=== PATIENT | female | born 1965 | race Caucasian/White ===

== ENCOUNTER 2017-01-17 09:40 | Day surgery (SDC) | payer OTHER ==
[2017-01-17] VITALS (9 sets, daily range): BP systolic 117–133; BP diastolic 59–68; PULSE 63–84; RESP 11–18; O2SAT 97–100
[~2017-01-17] VITALS: Ht 172.7 cm; Wt 91.8 kg
[~2017-01-17 09:40] MED LIST: RALO60TA PO
[2017-01-17] MEDS ORDERED: fentaNYL-PF 50 mCg/mL 2 mL Inj ONE (09:41)
[2017-01-17] MEDS: Lactated Ringer's 1,000 ML IV SCH ×2 (09:44→12:27)
--- NOTE | 2017-01-17 12:03 | DRSVH ---
PROCEDURE: NM SENTINEL NODE INJECTION ONLY, RIGHT BREAST RADIOPHARMACEUTICAL: 0.5 mCi Millipore filtered Tc-99m sulfur colloid. INDICATIONS: RIGHT BREAST CANCER PROCEDURE: The indications, alternatives, benefits, risks, and complications of the procedure were explained to the patient. Written informed consent was obtained and placed in the chart. The area around the nip ple was prepped and draped in a sterile fashion. Tc-99m sulfur colloid was injected in the outer edg e of the areola in the right breast. No image was obtained. IMPRESSION: Administration of radiotracer into the right breast periareolar region for intra-operati ve sentinel lymph node localization. Dictated by: Virgil Sawant M.D. on 01/17/2017 at 12:01 Approved by: Virgil Sawant M.D. on 01/17/2017 at 12:01
--- NOTE | 2017-01-17 12:23 | PCM.HPANE ---
Patient Data Surgeon Admitting Provider: Attending Provider:Yosvany Garsia MD Primary Care Physician:Santiago Walls MD Other Provider:[facility] Reason for Visit Right Breast Cancer Ht/WT & BMI Height (Feet): 5 Height (Inches): 8.00 Weight (Kilograms): 91.8 Body Mass Index 30.00 Allergies Coded Allergies: Tetracyclines (Verified Allergy, Severe, itching, 12/13/16) Past Anesthesia History Anesthesia History: Denies:: Anesthesia Reactions Diabetes History Hx Diabetes?: No Current Bedside Blood Glucose: 79 Medications Home Meds Incl Beta Francisco: No Reported Medications Raloxifene (Evista)60 Mg [id number] Mg PO DAILY 12/13/16 History History of ENT Problems?: No Hx of Heart Problems?: No Hx of Respiratory Problem?: No Respiratory History: Denies:: Oxygen Administration Use of C-PAP Machine Hx Neurologic Problems?: No Hx of GI Problems?: No Hx of Problems?: No Female Hx: Positive for:: Problems with Breasts? (right breast ca current admission/ hx of left segmental mast.) Denies:: Currently Hx Musculoskeletal Problems?: No Hx of Psycho/Social Problems?: No Hx Surgeries?: Yes (left segmental mastectomy) Hx Any Other Health Problems?: Yes Other History: Positive for:: Cancer (left breast hx, right breast current) Denies:: Thyroid Disease Hx Diabetes: NoBedside Blood Glucose: 79 Hx Alcohol Use: NoHx Substance Use: NoHave You Smoked inLast 12 mo: No Stop/Bang Treated for Sleep Apnea?: No Do You Have a CPAP Machine?: No P-Blood Pressure: treated: No B- Body Mass Index > 35 kg/m2: No A- Age over 50: Yes N- Neck Large Circumference: No G- Gender Male: No CLAU Risk Assessment: Low Risk, <3 Yes Risk Assessment Category Category 1A: Patient has history of documented sleep apnea, and HAS NOT received any narcotic, sedative or anesthesia administration during this stay. Category 1B: Patient has history of documented sleep apnea, and HAS received any narcotic , sedative or anesthesia administration during this stay Category 2: Patient has SUSPECTED Obstructive Sleep Apnea, and HAS received any narcotic , sedative or anesthesia administration during this stay. Category 3: Patient has SUSPECTED Obstructive Sleep Apnea and HAS NOT received narcotic, sedative or anesthesia administration during this stay. Category 4: Outpatient in Procedural Areas with known sleep apnea or who screen positive for High Risk via the STOP/BANG questionnaire. Exam Exam Vital Signs Vital Signs Date Time Temp Pulse Resp B/P Pulse Ox O2 Delivery O2 Flow Rate FiO2 01/17/17 10:09 36.5 63 18 126/59 97 Room Air General Appearance: Oriented X3 HEENT/AIRWAY: MP 2 Lungs: Normal Air Movement Heart: Regular Rate/Rhythm Meds/Labs/Diagnostics Admission Meds Current Medications Lactated Ringer's (Lr) 1,000 ml @ 120 mls/hr Q8H20M IV Last administered on t 09:44; Start 01/17/17 at 05:00; Stop 01/17/17 at 13:19 Bedside Blood Glucose: 79 Plan Impression Patient chart reviewed, patient interviewed and anesthestic plan with risks, benefits, and alternatives discussed, and informed consent obtained. NPO Status: 7PM ASA Physical Status: ASA2 Mod Systemic Disease Anesthetic Plan: GA Bene/Risks/Altern/Consents: Yes HP Complete Prior to Induction: Yes Shaka Echevarria MD Jan 17, 2017 12:22
[2017-01-17] MEDS ORDERED: Lactated Ringer's 500 ML IV PRN (14:34)
[2017-01-17] MEDS ORDERED: Lactated Ringer's 1,000 ML IV SCH (14:34)
[2017-01-17] MEDS ORDERED: Ondansetron 2 mg/mL 2 mL Inj IVPUSH PRN (14:35)
[2017-01-17] MEDS ORDERED: fentaNYL-PF 50 mCg/mL 2 mL Inj IVPUSH PRN (14:35)
[2017-01-17] MEDS ORDERED: EPHEDrine Sulfate 50 mg/mL Inj IVPUSH PRN (14:35)
[2017-01-17] MEDS ORDERED: Dexamethasone 4 mg/mL Inj IVPUSH PRN (14:35)
[2017-01-17] MEDS ORDERED: HYDROmorphone 1 mg/mL Inj IVPUSH PRN (14:35)
[2017-01-17] MEDS ORDERED: MetoCLOpramide 5 mg/mL 2 mL Inj IVPUSH PRN (14:35)
[2017-01-17] MEDS ORDERED: Phenylephrine 10,000 mCg/mL Inj IVPUSH PRN (14:35)
--- NOTE | 2017-01-17 14:36 | PCM.ANEP1 ---
Post Anesthesia Phase 1 PACU Phase 1 Assessment Vital Signs Vital Signs Date Time Temp Pulse Resp B/P Pulse Ox O2 Delivery O2 Flow Rate FiO2 01/17/17 14:30 83 14 128/60 100 Room Air 01/17/17 14:25 84 14 117/63 100 Simple Mask 8 01/17/17 14:20 65 11 119/59 100 Simple Mask 8 01/17/17 14:17 36.2 75 12 122/60 100 Simple Mask 8 01/17/17 10:09 36.5 63 18 126/59 97 Room Air Anesthetic Administered: GA Level of Alertness: Awake, talking Pain: No Nausea or Vomiting: No Oxygen Delivery: Room Air Lungs: Normal Air Movement Shaka Echevarria MD Jan 17, 2017 14:36
--- NOTE | 2017-01-17 14:36 | PCM.ANEP2 ---
Post Anesthesia Evaluation ASA/CMS Post Anesthesia VS in Patient's Normal Range?: Yes Resp Stable; Airway Patent?: Yes CV Function & Hydration Stable: Yes Mental Status Recovered?: Yes Pain control Satisfactory?: Yes N/V Control Satisfactory?: Yes Shaka Echevarria MD Jan 17, 2017 14:36
[2017-01-17] MEDS ORDERED: HYDROcodone-APAP 5-325 mg Tablet PO PRN (15:10)
--- NOTE | 2017-01-18 00:58 | OP ---
[address] [address] OPERATIVE REPORT PATIENT: BLANCA SERRANO : 1965 MR#: [id number] ADMIT: 01/17/2017 JOB ID: [id number] DATE OF SURGERY: 01/17/2017 PREOPERATIVE DIAGNOSIS(ES): Multifocal infiltrating ductal carcinoma, right breast. POSTOPERATIVE DIAGNOSIS(ES): Multifocal infiltrating ductal carcinoma, right breast. PROCEDURE: 1. Right axillary sentinel lymph node biopsy. 2. Right wire localized segmental mastectomy. Modifier-22 (two separate wires). 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 She had a breast MR scan which showed another area of her right breast and she underwent a biopsy on January 11 that also showed infiltrating ductal carcinoma. After discussing options with the patient, then at her request she wanted to proceed still with an attempt at breast conservation. She was discussed at the Tumor Conference, and with the agreement to proceed. To localize both areas, she required two separate wires. DESCRIPTION OF PROCEDURE: At the beginning and end of the operation, the SCOAP checklist was completed. Earlier today, she underwent a wire localization technique by Dr. Paz, and she also was injected for the sentinel lymph node biopsy. Using ChloraPrep, she was prepped and draped in the usual fashion. The sentinel lymph node was done first. The region of the node was localized in the axilla with the gamma scanner. An incision was designed and infiltrated with 0.5% bupivacaine. The axillary incision was made and dissection through the subcutaneous tissue to the clavipectoral fascia was done with cautery. After incising the clavipectoral fascia, the gamma scanner directed the dissection again using cautery. When I identified the node which had counts greater than 300, I removed the sentinel node and an adjacent node with the LigaSure. The background was essentially 0. This wound was then closed with layers of running 3-0 Vicryl subcutaneous sutures and then running subcuticular 4-0 Vicryl. Attention was then turned to the breast. There were two wires coming out of the medial breast. I made an incision between the two and then created skin flaps leading, and then was able to bring both wires into the wound. Using cautery, and also the LigaSure, the ample segmental mastectomy was performed, but when I came across the posterior lateral margin, I did come across one of the wires. I then backed up and redirected the direction of dissection. After taking out that specimen, I placed sutures for margin orientation. In examining that, I felt that there was possibly a positive margin involving the posterolateral portion of the specimen, and so I removed additional tissue and again placed sutures for margin orientation. Even with this, I elected to take even more breast tissue that abutted the 2nd breast specimen. I then asked Ed Garay, from Pathology, to come into the operating room, and then, both in the operating room and then back in the Pathology Laboratory, we together went over the specimens so that they were properly oriented. No frozen sections were done. Hemostasis was then confirmed. Clips were placed into the wound to esmer the location of the tumor and then the subcutaneous tissue was closed with 3-0 Vicryl and skin with subcuticular 4-0 Vicryl. Steri-Strips and sterile dressings were applied. The estimated blood loss was 10 cc. There were no apparent complications. The final sponge, needle, and instrument counts were announced as correct, and the patient was returned to recovery in stable condition. Modifier-22: Because of the use of two separate wires and two separate localizations and trying to combine these into a single specimen, this was a significantly more difficult segmental mastectomy than a typical one. Critical assistance was provided by Venkata Mejía PA-C.
--- NOTE | 2017-01-18 07:24 | DRSVH ---
SPECIMEN RIGHT BREAST: 01/17/2017 CLINICAL: Breast specimen. Correlation is made to exams dated: 01/17/2017 localization, 01/17/2017 localization, and 01/17/2017 local [facility]. A surgical specimen was imaged for the abnormality with calcifications located in the right breast a t 3 o'clock anterior depth. IMPRESSION: SPECIMEN The imaged specimen does not include biopsy clip. This exam was interpreted at Station ID: [id number]. Victor Manuel fontainetb/:01/17/2017 16:16:04 Additional referring physicians: ARYA PARKS, TAWANDA ROSENBAUM
--- NOTE | 2017-01-18 07:24 | DRSVH ---
MULTIPLE SPECIMENS RIGHT BREAST: 01/17/2017 CLINICAL: Breast specimen. Correlation is made to exams dated: 01/17/2017 localization, 01/17/2017 localization, and 01/17/2017 local [facility]. A surgical specimen was imaged for the mass located in the right breast at 3 o'clock middle depth. A surgical specimen was imaged for the abnormality with calcifications located in the right breast a t 3 o'clock anterior depth. IMPRESSION: SPECIMEN The imaged specimen includes a biopsy clip and the distal portion of the biopsy wire. The imaged specimen includes the distal portion of the localization wire and does not include biopsy clip. This exam was interpreted at Station ID: [id number]. Victor Manuel richardson/:01/17/2017 15:31:38 Additional referring physicians: ARYA PARKS, TAWANDA ROSENBAUM
[2017-04-07] MEDS ORDERED: PRD2.5T PO (11:20)
== END 2017-01-17 23:59 | disposition home or self-care (01) ==
LOC: SAS 09:40
PROVIDERS: ATTEND Surgery
DX: C50.911 Malignant neoplasm of unspecified site of right female breast (principal); Z17.0 Estrogen receptor positive status [ER+]; Z92.3 Personal history of irradiation; Z90.11 Acquired absence of right breast and nipple
CPT/HCPCS: 19301; 38525; 38792; 76098; A9541; J3010; J7120

== ENCOUNTER 2017-02-08 08:02 | Day surgery (SDC) | payer OTHER ==
[~2017-02-08] VITALS: Ht 172.7 cm; Wt 91.2 kg
[2017-02-08] VITALS (7 sets, daily range): BP systolic 117–146; BP diastolic 63–87; PULSE 68–72; RESP 14–18; O2SAT 99–100
[~2017-02-08 08:02] MED LIST changes: +CeFAZolin 2 Gm/50 mL D5W IV Premix IV SCH
[2017-02-08] MEDS ORDERED: Ondansetron 2 mg/mL 2 mL Inj ONE (08:03)
[2017-02-08] MEDS ORDERED: fentaNYL-PF 50 mCg/mL 2 mL Inj ONE (08:03)
[2017-02-08] MEDS ORDERED: Propofol 10,000 mCg/mL 20 mL Inj ONE (08:03)
[2017-02-08] MEDS ORDERED: Lidocaine PF 1% 30 mL Inj ONE (08:03)
[2017-02-08] MEDS ORDERED: Dexamethasone 4 mg/mL Inj ONE (08:03)
[2017-02-08] MEDS: Lactated Ringer's 1,000 ML IV SCH ×2 (08:05→10:28)
[2017-02-08] MEDS ORDERED: CALC600T12 PO (08:22)
[2017-02-08] MEDS ORDERED: IBUP400T22 PO (08:22)
[2017-02-08] MEDS ORDERED: vit d PO (08:22)
[2017-02-08] MEDS ORDERED: MULT-1018 PO (08:22)
[2017-02-08] MEDS ORDERED: vit c PO (08:22)
[2017-02-08] MEDS ORDERED: LYSI500T3 PO (08:22)
--- NOTE | 2017-02-08 10:19 | PCM.HPANE ---
Patient Data Date of Service: Feb 08, 2017 Surgeon Admitting Provider: Attending Provider:Yosvany Garsia MD Primary Care Physician:Santiago Walls MD Other Provider:[facility] Reason for Visit Right Breast Cancer Ht/WT & BMI Height (Feet): 5 Height (Inches): 8 Weight (Kilograms): 88.9 Body Mass Index 29.00 Allergies Coded Allergies: Tetracyclines (Verified Allergy, Severe, itching, 12/13/16) Past Anesthesia History Anesthesia History: Denies:: Anesthesia Reactions Diabetes History Hx Diabetes?: No MRSA MRSA: No Medications Hypertension Medication: No Home Meds Incl Beta Francisco: No Reported Medications [vit c] No Conflict Check Po Daily 02/08/17 [vit d] No Conflict Check Po Daily 02/08/17 Calcium Carbonate (Calcium)600 Mg [id number] Mg PO 02/08/17 Lysine 500 Mg [id number] Mg PO 02/08/17 Multivitamin (Multi Vitamin Daily)1 Each Tablet1 Each PO DAILY 30 Days Ref 0 02/08/17 Ibuprofen 400 Mg [id number] Mg PO QID PRN For Pain Ref 0 02/08/17 Discontinued Reported Medications Raloxifene (Evista)60 Mg [id number] Mg PO DAILY 12/13/16 History History of ENT Problems?: No HEENT History: Denies:: Cataracts Glaucoma Hearing Problem Hx of Heart Problems?: No Cardiovascular History: Denies:: Abdominal Aortic Aneurism Atrial Fibrillation Edema Hypertension Hx of Respiratory Problem?: No Respiratory History: Denies:: Asthma COPD Dyspnea Emphysema Oxygen Administration Pneumonia Tuberculosis Use of C-PAP Machine Hx Neurologic Problems?: No Hx of GI Problems?: No Gastrointestinal History: Denies:: Cirrhosis Gall Bladder Disease Gastroesphageal Reflux Gastrointestinal Bleeding Hepatitis Liver Disease Hx of Problems?: No Genitourinary History: Denies:: Kidney Stones Urinary Tract Infection Female Hx: Positive for:: Problems with Breasts? (right breast mast 3/6- positive margins, current admission problem) Denies:: Currently Hx Musculoskeletal Problems?: No Hx of Psycho/Social Problems?: No Hx Surgeries?: Yes (left segmental mastectomy, right mastectomy) Hx Any Other Health Problems?: Yes Other History: Positive for:: Cancer (left breast hx, right breast current) Denies:: Thyroid Disease Hx Diabetes: No Hx Alcohol Use: NoHx Substance Use: No Smoking Status: Never Smoker Have You Smoked inLast 12 mo: No Stop/Bang S-Snoring: Do You Snore Loudly: Yes T-Tired: feel tired, fatigued: Yes O-Obsered: Observed not breath: No P-Blood Pressure: treated: No B- Body Mass Index > 35 kg/m2: No A- Age over 50: Yes N- Neck Large Circumference: No G- Gender Male: No CLAU Total Score: 3 CLAU Risk Assessment: High Risk, =/>3 Yes Risk Assessment Category Category 1A: Patient has history of documented sleep apnea, and HAS NOT received any narcotic, sedative or anesthesia administration during this stay. Category 1B: Patient has history of documented sleep apnea, and HAS received any narcotic , sedative or anesthesia administration during this stay Category 2: Patient has SUSPECTED Obstructive Sleep Apnea, and HAS received any narcotic , sedative or anesthesia administration during this stay. Category 3: Patient has SUSPECTED Obstructive Sleep Apnea and HAS NOT received narcotic, sedative or anesthesia administration during this stay. Category 4: Outpatient in Procedural Areas with known sleep apnea or who screen positive for High Risk via the STOP/BANG questionnaire. Exam Exam General Appearance: Alert, Oriented X3, Cooperative, No Acute Distress HEENT/AIRWAY: MP 2 Lungs: Normal Air Movement Heart: Exam Unremarkable Meds/Labs/Diagnostics Admission Meds Current Medications Lactated Ringer's (Lr) 1,000 ml @ 120 mls/hr Q8H20M IV Last administered on t 08:05; Start 02/08/17 at 05:00; Stop 02/08/17 at 13:19 Plan Impression Patient chart reviewed, patient interviewed and anesthestic plan with risks, benefits, and alternatives discussed, and informed consent obtained. NPO Status: 7PM ASA Physical Status: ASA2 Mod Systemic Disease Anesthetic Plan: GA Bene/Risks/Altern/Consents: Yes HP Complete Prior to Induction: Yes Lloyd Evans MD Feb 08, 2017 08:40
[2017-02-08] MEDS ORDERED: Lactated Ringer's 1,000 ML IV SCH (10:43)
[2017-02-08] MEDS ORDERED: Lactated Ringer's 500 ML IV PRN (10:43)
[2017-02-08] MEDS ORDERED: Labetalol 5 mg/mL 4 mL Inj IV PRN (10:45)
[2017-02-08] MEDS ORDERED: MetoCLOpramide 5 mg/mL 2 mL Inj IVPUSH PRN (10:45)
[2017-02-08] MEDS ORDERED: EPHEDrine Sulfate 50 mg/mL Inj IVPUSH PRN (10:45)
[2017-02-08] MEDS ORDERED: Phenylephrine 10,000 mCg/mL Inj IVPUSH PRN (10:45)
[2017-02-08] MEDS ORDERED: Dexamethasone 4 mg/mL Inj IVPUSH PRN (10:45)
[2017-02-08] MEDS ORDERED: HYDROmorphone 1 mg/mL Inj IVPUSH PRN (10:45)
[2017-02-08] MEDS ORDERED: fentaNYL-PF 50 mCg/mL 2 mL Inj IVPUSH PRN (10:45)
[2017-02-08] MEDS ORDERED: Atropine 0.4 mg/mL Inj IVPUSH PRN (10:45)
[2017-02-08] MEDS ORDERED: Ondansetron 2 mg/mL 2 mL Inj IVPUSH PRN (10:45)
[2017-02-08] MEDS ORDERED: Bupivacaine-MPF 0.5% 30 mL Inj INFILTRATE ONE ×2 (10:50→11:34)
[2017-02-08] MEDS ORDERED: Lidocaine PF 1% 30 mL Inj INFILTRATE ONE (11:35)
[2017-02-08] MEDS ORDERED: HYDROcodone-APAP 5-325 mg Tablet PO PRN (12:00)
--- NOTE | 2017-02-08 12:20 | PCM.ANEP1 ---
Post Anesthesia Phase 1 PACU Phase 1 Assessment Date of Service: Feb 08, 2017 Vital Signs Vital Signs Date Time Temp Pulse Resp B/P Pulse Ox O2 Delivery O2 Flow Rate FiO2 02/08/17 08:37 36.2 68 18 117/87 99 Room Air Anesthetic Administered: GA Level of Alertness: Drowsy, not talking Pain: No Nausea or Vomiting: No Oxygen Delivery: Nasal Cannula Lungs: Normal Air Movement Lloyd Evans MD Feb 08, 2017 12:20
--- NOTE | 2017-02-08 12:33 | PCM.ANEP2 ---
Post Anesthesia Evaluation ASA/CMS Post Anesthesia Date of Service: Feb 08, 2017 VS in Patient's Normal Range?: Yes Resp Stable; Airway Patent?: Yes CV Function & Hydration Stable: Yes Mental Status Recovered?: Yes Pain control Satisfactory?: Yes N/V Control Satisfactory?: Yes Lloyd Evans MD Feb 08, 2017 12:33
--- NOTE | 2017-02-08 13:42 | OP ---
[address] [address] OPERATIVE REPORT PATIENT: BLANCA SERRANO : 1965 MR#: [id number] ADMIT: 02/08/2017 JOB ID: [id number] DATE OF SURGERY: 02/08/2017 PREOPERATIVE DIAGNOSIS(ES): 1. Right breast cancer. 2. Need for central venous access for chemotherapy. POSTOPERATIVE DIAGNOSIS(ES): 1. Right breast cancer. 2. Need for central venous access for chemotherapy. PROCEDURE: 1. Re-excision right posterior lateral margin of segmental mastectomy site. 2. Left subclavian venous PowerPort. 3. Fluoroscopy for PowerPort. SURGEON: Yosvany Garsia MD MOLECULAR SPECTROSCOPIST: Ramses Todd PA-C INDICATIONS: A 51-year-old female who recently had a wire localized right segmental mastectomy. She had two separate wires. The final posterolateral margin was positive for infiltrating ductal carcinoma, and after discussing options with the patient, it was elected to proceed with re-excision of that margin, as well as placement of a PowerPort. Her specimen mammogram of her original resection showed only one biopsy clip when she had had two biopsy clips, but an interval mammogram showed no residual biopsy clips in her right breast. FINDINGS: Final margins of the excised specimen were grossly normal. There is no palpable mass within the right breast tissue through the segmental mastectomy wound. The catheter was placed into the right atrium. There was good return of blood. No resistance to inflow and no evidence of a left pneumothorax. DESCRIPTION OF PROCEDURE: At the beginning and end of the operation, the SCOAP checklist was completed. An LMA anesthetic was induced by Dr. Lloyd Evans. Using ChloraPrep, her right breast was prepped and draped in the usual fashion. I injected 0.5% plain bupivacaine along her incision. The incision was opened. The posterior lateral margin of her segmental mastectomy wound was excised using cautery. Sutures placed for margin orientation. Hemostasis was ensured and an additional hemoclip placed to esmer the extent of the dissection. The wound was closed with running subcutaneous 3-0 Vicryl and subcuticular 4-0 Vicryl, and Steri-Strips were applied. She was repositioned and both arms tucked. Gloves and instruments were changed. Her neck was extended. Using ChloraPrep, her chest and neck were prepped and draped in usual fashion. Local anesthesia was injected below the left clavicle, and on the first pass, the subclavian vein was accessed. With fluoroscopic control, a guidewire positioned into the superior vena cava. The patient was in the Trendelenburg position. The pocket for the PowerPort reservoir was made. The catheter tunneled between the two incisions, securely connected to the PowerPort, which was then secured to the chest wall with interrupted 2-0 Prolene sutures. It was flushed with heparinized saline. The catheter was cut to an appropriate length, and with a split sheath introducer, it was positioned into the right atrium. There was good return of blood. No resistance to inflow and again no pneumothorax. The wounds were closed with running subcutaneous 3-0 Vicryl and running subcuticular 4-0 Vicryl. Dermabond was applied. Estimated blood loss for both operations less than 10 cc. No apparent complications. The final sponge, needle, and instrument counts were announced as correct, and the patient was returned to recovery in stable condition. Critical assistance provided by ANNELISE Gonzalez
[2017-04-07] MEDS ORDERED: PRD2.5T PO (11:20)
== END 2017-02-08 23:59 | disposition home or self-care (01) ==
LOC: SAS 08:02
PROVIDERS: ATTEND Surgery
DX: C50.911 Malignant neoplasm of unspecified site of right female breast (principal); Z85.3 Personal history of malignant neoplasm of breast; Z80.3 Family history of malignant neoplasm of breast; Z92.3 Personal history of irradiation
CPT/HCPCS: 19120; 36561; 77001; C1788; J0690; J1100; J1642; J2250; J2405; J3010; J7120